=== PATIENT | male | born 1980 | race Caucasian/White ===

== ENCOUNTER 2020-11-10 06:56 | Emergency (ER) | payer OTHER ==
[2020-11-10] MEDS ORDERED: Ondansetron 4 MG/2 ML SDV IVPUSH ONE ×2 (07:15→09:22)
[2020-11-10] MEDS ORDERED: HYDROmorphone 2 MG/ML SDV IVPUSH ONE (07:15)
[2020-11-10] MEDS ORDERED: Ondansetron 4 MG/2 ML SDV ONE ×2 (07:22→09:17)
[2020-11-10] MEDS ORDERED: HYDROmorphone 2 MG/ML SDV ONE (07:22)
[2020-11-10] MEDS ORDERED: Ketorolac 60 MG/2 ML SDV IVPUSH ONE (09:00)
--- NOTE | 2020-11-10 09:09 | EDM.PDOC ---
ED HPI GENERAL MEDICAL PROBLEM - General Chief Complaint: Genitourinary Problem Stated Complaint: POSSIBLE KIDNEY STONE Time Seen by Provider: 11/10/20 07:05 - History of Present Illness INITIAL COMMENTS - FREE TEXT/NARRATIVE: C/O left flank pain for a few days. He was seen in the clinic Friday and a UA showed occult mild blood. Symptoms got worse last nite. He has taken Motrin 45 minutes ago. He has Hx of a renal stone x 1. Left Flank Pain Score (Numeric/FACES): 8 - Related Data Allergies Allergy/AdvReac Type Severity Reaction Status Date / Time No Known Allergies Allergy Verified 11/10/20 07:06 Home Meds: Home Meds NK [No Known Home Meds] 11/10/20 [History] Past Medical History - Past Health History Medical/Surgical History: Denies Medical/Surgical History Social & Family History - Family History Family Medical History: No Pertinent Family History - Tobacco Use Tobacco Use Status *Q: Never Tobacco User - Caffeine Use Caffeine Use: Reports: Coffee - Alcohol Use Number of Drinks Per Day: 2 - Recreational Drug Use Recreational Drug Use: No ED ROS GENERAL - Review of Systems Review Of Systems: Comprehensive ROS is negative, except as noted in HPI. : Reports: Flank Pain, Other (and cloudy urine.) ED EXAM, RENAL/ - Physical Exam Exam: See Below Text/Narrative:: Pt is awake and alert. No Respiratory distress. V.S. are reviewed - BP 177/99 - P 73 - T 96. Lungs are clear - Heart sounds distinct S1,S2 present - RRR. No CVA tenderness with percussion. He does have pain involving the lower back left side radiating around the flank. Skin is warm and dry. Course - Vital Signs Text/Narrative:: Pt was given Dilaudid 1 mg IV and Zofran 4 mg IV. This did control his pain. Last Recorded V/S: Last Vital Signs Temp 96.0 F L 11/10/20 07:06 Pulse 62 11/10/20 07:58 Resp 16 11/10/20 07:06 BP 151/103 H 11/10/20 07:58 Pulse Ox 96 11/10/20 07:06 - Orders/Labs/Meds Orders: Active Orders 24 hr Category Date Time Status Abdomen Pelvis wo Cont [CT] Stat Exams 11/10/20 07:16 Taken UA W/MICROSCOPIC [URIN] Stat Lab 11/10/20 07:15 Ordered Labs: Laboratory Tests 11/10/20 11/10/20 Range/Units 07:30 07:30 WBC 5.8 (4.0-11.0) K/uL RBC 5.15 (4.50-6.50) M/uL Hgb 15.8 (13.0-18.0) g/dL Hct 44.8 (40.0-54.0) % MCV 87 (76-96) fL MCH 30.7 (27.0-32.0) pg MCHC 35.3 H (31.0-35.0) g/dL RDW 12.8 (11.0-16.0) % Plt Count 183 (150-400) K/uL MPV 10.6 H (6.0-10.0) fL Neut % (Auto) 65.7 (45.0-70.0) % Lymph % (Auto) 24.8 (20.0-40.0) % Steele % (Auto) 6.2 (3.0-10.0) % Eos % (Auto) 2.6 (1.0-5.0) % Baso % (Auto) 0.7 H (0.0-0.5) % Neut # (Auto) 3.79 (2.00-7.50) K/uL Lymph # (Auto) 1.43 L (1.50-4.00) K/uL Steele # (Auto) 0.36 (0.20-0.80) K/uL Eos # (Auto) 0.15 (0.04-0.40) K/uL Baso # (Auto) 0.04 (0.02-0.10) K/uL Sodium 138 (136-145) mmol/L Potassium 3.7 (3.5-5.1) mmol/L Chloride 104 (98-107) mmol/L Carbon Dioxide 24.3 (21.0-32.0) mmol/L Anion Gap 13.4 (5.0-15.0) mmol/L BUN 15 (8-26) mg/dL Creatinine 0.91 (0.70-1.30) mg/dL Est Cr Clr Drug Dosing 113.78 mL/min Estimated GFR (MDRD) > 60 (>60) MLS/MIN BUN/Creatinine Ratio 16.5 (6-25) Glucose 156 H (74-100) mg/dL Calcium 8.4 L (8.5-10.1) mg/dL Total Bilirubin 2.5 H (0.0-1.0) mg/dL AST 47 H (15-37) U/L ALT 121 H (12-78) U/L Alkaline Phosphatase 65 (46-116) U/L Total Protein 7.1 (6.4-8.2) g/dL Albumin 4.1 (3.4-5.0) g/dL Globulin 3.0 (2.2-4.2) g/dL Albumin/Globulin Ratio 1.4 (0.8-2.0) Meds: Medications Discontinued Medications Generic Name Dose Route Start Last Admin Trade Name Freq PRN Reason Stop Dose Admin Hydromorphone HCl Confirm 11/10/20 07:22 11/10/20 07:34 Hydromorphone 2 Mg/Ml Sdv Administered 11/10/20 07:23 Not Given Dose 2 mg .ROUTE .STK-MED ONE Hydromorphone HCl 1 mg 11/10/20 07:15 11/10/20 07:23 Hydromorphone 2 Mg/Ml Sdv IVPUSH 11/10/20 07:16 1 mg ONETIME ONE Administration Ketorolac Tromethamine 30 mg 11/10/20 09:00 Ketorolac 60 Mg/2 Ml Sdv IVPUSH 11/10/20 09:01 ONETIME ONE Ketorolac Tromethamine Confirm 11/10/20 09:11 Ketorolac 30 Mg/Ml Sdv Administered 11/10/20 09:12 Dose 30 mg .ROUTE .STK-MED ONE Ondansetron HCl Confirm 11/10/20 07:22 11/10/20 07:35 Ondansetron 4 Mg/2 Ml Sdv Administered 11/10/20 07:23 Not Given Dose 4 mg .ROUTE .STK-MED ONE Ondansetron HCl 4 mg 11/10/20 07:15 11/10/20 07:20 Ondansetron 4 Mg/2 Ml Sdv IVPUSH 11/10/20 07:16 4 mg ONETIME ONE Administration - Radiology Interpretation Free Text/Narrative:: CT shows a 3mm stone distal left ureter with mild Hydronephrosis and mild Hydroureter. - Re-Assessments/Exams Free Text/Narrative Re-Assessment/Exam: 11/10/20 09:11 Pt will be discharged with [place] to use prn. He is to use Motrin TID until condition resolves. Flomax will be given also for 7 days. He was given another dose of Zofran before discharge for nausea. Departure - Departure Time of Disposition: 09:10 Disposition: Home, Self-Care 01 Condition: Good Clinical Impression: Kidney stone - Discharge Information *PRESCRIPTION DRUG MONITORING PROGRAM REVIEWED*: Not Applicable *COPY OF PRESCRIPTION DRUG MONITORING REPORT IN PATIENT JARETT: Not Applicable Instructions: Kidney Stones, [id number] Referrals: PCP,None [Primary Care Provider] - Forms: ED Department Discharge Additional Instructions: Discharge home. Drink lots of water to help flush the stone out. Vicodin Flomax Ibuprofen/Motrin for pain between Vicodin. Strain urine. Follow up in the clinic as needed. Sepsis Event Note (ED) - Evaluation Sepsis Screening Result: No Definite Risk - Focused Exam Vital Signs: Vital Signs Temp Pulse Resp BP Pulse Ox 11/10/20 07:58 62 151/103 H 11/10/20 07:06 96.0 F L 73 16 177/99 H 96 11/10/20 06:56 96 F L 73 16 177/99 H 96 - My Orders Last 24 Hours: My Active Orders 11/10/20 07:15 UA W/MICROSCOPIC [URIN] Stat 11/10/20 07:16 Abdomen Pelvis wo Cont [CT] Stat - Assessment/Plan Last 24 Hours: My Active Orders 11/10/20 07:15 UA W/MICROSCOPIC [URIN] Stat 11/10/20 07:16 Abdomen Pelvis wo Cont [CT] Stat
[2020-11-10] MEDS ORDERED: Ketorolac 30 MG/ML SDV ONE (09:11)
--- NOTE | 2020-11-10 16:20 | CT ---
CLINICAL DATA: Left flank pain. History of renal stones. UNENHANCED ABDOMEN AND PELVIC CT, 10 NOVEMBER 2020: Multislice axial acquisition through the abdomen and pelvis without IV or oral contrast was performed. No priors. The lung bases are clear. The heart size is normal. The liver is normal size with homogeneous attenuation. No focal hepatic lesions. The gallbladder appears normal. No calcified gallstones. No pericholecystic fluid. The pancreas appears normal. The spleen appears normal. The right and left adrenals appear normal. There are subtle calcifications in the region of the renal pyramids suggesting medullary sponge kidney. There is a nonobstructing renal calculus in the lower pole of the left kidney. There is a 2 mm distal ureteral calculus on the left located at the ureterovesical junction. There is mild hydronephrosis and hydroureter proximal to it. The kidneys and collecting systems are otherwise unremarkable. The bladder is partially fluid-filled. It appears normal. The prostate is mildly enlarged. No evidence of appendicitis. There is a moderate amount of stool present in the cecum, ascending colon, and transverse colon. No free air. No free fluid. No dilated loops of bowel. No adenopathy. No aortic aneurysm. There is a small fat-containing umbilical hernia. There are small bilateral fat-containing inguinal hernias. No other significant findings. IMPRESSION: 2 mm distal ureteral calculus on the left with proximal hydronephrosis and hydroureter. Other findings, as discussed above. Job: [id number] [facility]
== END 2020-11-10 09:15 | disposition home or self-care (01) ==
LOC: LB.ED 06:56
DX: N13.2 Hydronephrosis with renal and ureteral calculous obstruction (principal)
CPT/HCPCS: 36415; 74176; 80053; 85025; 96374; 96375; 96376; 99284; J1170; J1885; J2405